=== PATIENT | male | born 1980 | race Caucasian/White ===

== ENCOUNTER 2021-12-09 11:43 | Emergency (ER) | payer OTHER ==
[~2021-12-09] VITALS: Ht 180.3 cm; Wt 92.3 kg
[2021-12-09 11:44] VITALS: BP 148/89
[2021-12-09] MEDS ORDERED: OMEP40CA4 PO (12:12)
== END 2021-12-09 15:02 | disposition home or self-care (01) ==
LOC: M ED 11:43
DX: R05.3 Chronic cough (principal); R11.11 Vomiting without nausea; K21.9 Gastro-esophageal reflux disease without esophagitis; I10 Essential (primary) hypertension